=== PATIENT | male | born 2000 | race Caucasian/White ===

== ENCOUNTER 2021-11-10 06:53 | Emergency (ER) | payer OTHER ==
[~2021-11-10 06:53] MED LIST: BENTYL10 MG PO; LOTRIMIN30 ML TOP
[2021-11-10] MEDS ORDERED: FLEXERIL5 MG PO (07:21)
== END 2021-11-10 10:44 | disposition home or self-care (01) ==
LOC: FER 06:53
DX: R51.9 Headache, unspecified (principal); V43.02XA Car driver injured in collision with other type car in nontraffic accident, initial encounter; Y92.410 Unspecified street and highway as the place of occurrence of the external cause
CPT/HCPCS: 99283

== ENCOUNTER 2022-02-07 21:21 | Emergency (ER) | payer OTHER ==
[~2022-02-07 21:21] MED LIST changes: +FLEXERIL5 MG PO
[2022-02-07 22:01] LABS: BASOPHIL 0.8 % (0-2); HCT 45.6 % (42.0-52.0); HGB 15.3 g/dl (13.2-18.0); LYMPHOCYTE 28.6 % (15-48); MCH 30.3 pg (25.0-31.0); MCHC 33.6 g/dL (32.0-36.0); MCV 90.3 fL (78.0-100.0); MPV 11.6 fL (6.0-9.5); NEUTROPHIL 58.3 % (41-80); NRBC 0; PLT 143 K/uL (150-400); RBC 5.05 M/uL (4.70-6.00); RDW 11.8 % (11.5-14.0); WBC 6.1 K/uL (4.0-10.5)
[2022-02-07 22:25] LABS: BUN/CREAT RATIO (CALC) 7.2 RATIO; CREATININE 0.97 mg/dL (0.67-1.17); POTASSIUM 4.2 mmol/L (3.5-5.1)
[2022-02-07] MEDS ORDERED: DIAMODE2 MG PO (23:19)
[2022-02-07] MEDS ORDERED: ONDANSETRON ODT4 MG PO (23:19)
[2022-02-07] MEDS ORDERED: FLAGYL500 MG PO (23:19)
== END 2022-02-07 23:40 | disposition home or self-care (01) ==
LOC: FER 21:21
PROVIDERS: Nurse Practitioner Family
DX: K52.29 Other allergic and dietetic gastroenteritis and colitis (principal); Z28.310 Unvaccinated for COVID-19
CPT/HCPCS: 36415; 80048; 85025; J7030; Q9967